=== PATIENT | female | born 1970 | race Two or more races ===

== ENCOUNTER 2020-11-19 19:56 | Inpatient (IN) | payer MEDICARE, OTHER ==
[~2020-11-19] VITALS: Ht 165.1 cm; Wt 179.2 kg
--- NOTE | 2020-11-19 20:00 | NUR ---
PT [id number] UPON TRIAGE PT STATES "I JUST WANT A BED TO BE OUT OF THE STREET" PT DENIES SI/HI. PT AAOX4, APPEARS DISSHEVELED. VITAL SIGNS STABLE. RESPIRATIONS EVEN AND UNLABORED. NO ACUTE DISTRESS NOTED AT THIS TIME. PENDING MD GILL
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
--- NOTE | 2020-11-19 20:10 | NUR ---
DR. WALKER AT BEDSIDE FOR EVAL. NOTED REDDNESS R LOWER EXT
--- NOTE | 2020-11-19 20:20 | NUR ---
MULTIPLE UNSUCCESSFUL IV ATTEMPTS. PT REFUSING BLOOD DRAW AT THIS TIME. DR. WALKER AT BEDSIDE TO ATTEMPT CENTRAL LINE, PT REFUSED. CALLED NURSING SUP FOR MIDLINE, PER NURSING SUP NOT AVAILABLE UNTIL AM. DR. WALKER MADE AWARE. PT RESTING COMFORTABLY IN BED.
--- NOTE | 2020-11-19 20:31 | NUR ---
PT REFSUING IV. SENA MOYA AWARE.
--- NOTE | 2020-11-19 20:38 | NUR ---
The patient refused to give clean catch urine or in and out cath despite explaining risks and benefits. Dr Mc aware.
--- NOTE | 2020-11-19 20:43 | NUR ---
ICU NURSE AT BEDSIDE TO ATTEMPT IV ACCESS, UNSUCCESSFUL.
[2020-11-19] MEDS ORDERED: SULFAMETH/TRIMETH 800/160 MG 1 UDTAB TABLET PO ONE (21:30)
[2020-11-19] MEDS ORDERED: CEFTRIAXONE 1 G VIAL IM ONE (21:30)
--- NOTE | 2020-11-19 21:43 | NUR ---
ATTORNEY LAW CLERK AT BEDSIDE FOR BLOOD DRAW.
[2020-11-19] MEDS ORDERED: SULFAMETH/TRIMETH 800/160 MG 1 UDTAB TABLET ONE (21:45)
[2020-11-19] MEDS ORDERED: CEFTRIAXONE 1 G VIAL ONE (21:45)
[2020-11-19] MEDS ORDERED: LIDOCAINE 1% INJ 50 ML MDV IJ ONE (21:47)
[2020-11-19 21:57] LABS: BASOPHILS % (AUTO) 0.3 % (0.0-2.0); EOSINOPHILS % (AUTO) 2.5 % (0.0-6.0); HEMATOCRIT 38 % (33-45); HEMOGLOBIN 12.4 g/dL (11.5-14.8); LYMPHOCYTES # (AUTO) 1.9 /CMM (0.8-4.8); LYMPHOCYTES % (AUTO) 19.5 % (20.0-44.0); MEAN CORPUSCULAR HGB CONC 33 g/dl (31.0-36.0); MEAN CORPUSCULAR VOLUME 88 fL (82-100); MONOCYTES # (AUTO) 0.5 /CMM (0.1-1.30); MONOCYTES % (AUTO) 5.1 % (2.0-12.0); NEUTROPHILS # (AUTO) 7.2 /CMM (1.8-8.9); NEUTROPHILS % (AUTO) 72.6 % (43.0-81.0); PLATELET COUNT (AUTO) 349 /CMM (150-450); WHITE BLOOD COUNT (AUTO) 9.9 K/uL (4.3-11.0)
[2020-11-19 22:05] LABS: CALCIUM, SERUM 8.4 mg/dL (8.5-10.1); CARBON DIOXIDE 30 mmol/L (21-32); CHLORIDE 100 mmol/L (98-107); CREATININE 0.7 mg/dL (0.6-1.3); GLUCOSE 227 mg/dL (74-106); POTASSIUM 4.5 mmol/L (3.5-5.1); SODIUM SERUM 136 mmol/L (136-145); UREA NITROGEN, BLOOD 10 mg/dL (7-18)
[2020-11-19 22:11] LABS: ALANINE AMINOTRANSFERASE 31 U/L (12-78); ALBUMIN 3.1 g/dL (3.4-5.0); ALKALINE PHOSPHATASE 88 U/L (46-116); ASPARTATE AMINOTRANSFERASE 12 U/L (15-37); BILIRUBIN,DIRECT 0.1 mg/dL (0.0-0.2); BILIRUBIN,TOTAL 0.3 mg/dL (0.2-1.0); TOTAL PROTEIN, SERUM 7.3 g/dL (6.4-8.2)
--- NOTE | 2020-11-19 22:21 | NUR ---
DR. WALKER SPEAKING WITH DR. FARR REGARDING ADMISSION
[2020-11-19] MEDS ORDERED: MAG HYDROX/AL HYDROX/SIMETH 30 ML UDC PO PRN (22:30)
[2020-11-19] MEDS ORDERED: MAGNESIUM HYDROXIDE 30 ML UDC PO PRN (22:30)
[2020-11-19] MEDS ORDERED: ONDANSETRON HCL/PF 4 MG/2 ML VIAL IVP PRN (22:30)
[2020-11-19] MEDS ORDERED: Z GUARD REMEDY 2 OZ OINT TP PRN (22:30)
[2020-11-19] MEDS ORDERED: DEXTROSE 50%-WATER 50 ML DISP.SYRIN IV PRN (22:30)
[2020-11-19] MEDS ORDERED: ZOLPIDEM TARTRATE 5 MG TABLET PO PRN (22:30)
[2020-11-19] MEDS ORDERED: CLINDAMYCIN IV RTU IN D5W 900 MG/50 ML PIGGYBACK IV SCH (22:30)
--- NOTE | 2020-11-19 23:08 | NUR ---
CALLED NURSING SUP FOR MIDLINE INSERTION. PER NURSING SUP, NOT AVAILABLE UNTIL AM
--- NOTE | 2020-11-19 23:24 | NUR ---
REPORT GIVEN TO NURSE GUDINO
--- NOTE | 2020-11-19 23:30 | NUR ---
BED ASSIGNMENT CHANGED TO 326-1
[2020-11-20 00:15] VITALS: BP 138/89
--- NOTE | 2020-11-20 00:22 | NUR ---
PT TRANSFERRED TO [facility]
[2020-11-20 00:30] VITALS: BP 138/89
--- NOTE | 2020-11-20 00:30 | NUR ---
MS/RN ADMITTING NOTE PATIENT ARRIVED TO UNIT VIA GURNEY AND 2 STAFF MEMBERS. PATIENT IS ALERT AND ORIENTED X 4. ABLE TO MAKE NEEDS KNOWN. NO COMPLAINTS OF PAIN AT THIS TIME. CONTINUES ON ROOM AIR WITH NO S/SX OF RESPIRATORY DISTRESS NOTED. PATIENT BEING ADMITTED FOR CELLULITIS OF RLE. BLE EDEMA WITH REDNESS NOTED. PATIENT REFUSED FULL SKIN CHECK UPON ADMISSION. PATIENT REFUSED TO HAVE SHEETS CHANGED FROM ER OR ADL CARE PERFORMED. VS ON ADMISSION: BP 138/89 HR 92 RR 18 T 98.2 O2 SAT 93% ON ROOM AIR. NO IV ACCESS AT THIS TIME D/T MULTIPLE ATTEMPTS. MD AWARE WITH ORDER FOR MIDLINE IN AM. CONTINUES ON CARDIAC DIET WITH NO S/SX OF RESPIRATORY DISTRESS NOTED. ALL BELONGINGS REVIEWED AND CHECKLIST PLACED IN CHART. PATIENT ORIENTED TO CALL LIGHT, UNIT AND ROOM. CALL LIGHT WITHIN REACH. ASPIRATION, FALL AND SAFETY PRECAUTIONS MAINTAINED. WILL CONTINUE TO MONITOR.
[2020-11-20 03:57] LABS: BASOPHILS % (AUTO) 0.4 % (0.0-2.0); EOSINOPHILS % (AUTO) 2.8 % (0.0-6.0); HEMATOCRIT 35 % (33-45); HEMOGLOBIN 11.5 g/dL (11.5-14.8); LYMPHOCYTES # (AUTO) 1.7 /CMM (0.8-4.8); LYMPHOCYTES % (AUTO) 21.4 % (20.0-44.0); MEAN CORPUSCULAR HGB CONC 33 g/dl (31.0-36.0); MEAN CORPUSCULAR VOLUME 87 fL (82-100); MONOCYTES # (AUTO) 0.4 /CMM (0.1-1.30); MONOCYTES % (AUTO) 5.1 % (2.0-12.0); NEUTROPHILS # (AUTO) 5.6 /CMM (1.8-8.9); NEUTROPHILS % (AUTO) 70.3 % (43.0-81.0); PLATELET COUNT (AUTO) 329 /CMM (150-450); RED BLOOD CELL COUNT(AUTO) 3.98 MIL/uL (4.0-5.2); WHITE BLOOD COUNT (AUTO) 7.9 K/uL (4.3-11.0)
[2020-11-20] MEDS: ACETAMINOPHEN 325 MG TABLET PO PRN ×2 (04:05→13:30)
[2020-11-20 04:14] LABS: CREATININE 0.6 mg/dL (0.6-1.3); MAGNESIUM 2.2 mg/dL (1.8-2.4); PHOSPHORUS 3.8 mg/dL (2.5-4.9); POTASSIUM 4.9 mmol/L (3.5-5.1)
[2020-11-20] MEDS: BLOOD SUGAR DIAGNOSTIC 1 EACH STRIP VI SCH ×4 (06:20→22:00)
[2020-11-20] MEDS: INSULIN REGULAR, HUMAN 100 UNIT/ML 3 ML VIAL SQ PRN (06:47)
--- NOTE | 2020-11-20 06:52 | NUR ---
MS/RN CLOSING NOTE PATIENT CURRENTLY SLEEPING IN BED. ALERT AND ORIENTED X 4. ABLE TO MAKE NEEDS KNOWN. NO COMPLAINTS OF PAIN AT THIS TIME. NO IV ACCESS AT THIS TIME - ORDER IN PLACE FOR MIDLINE TODAY WITH MD AWARE. BLOOD GLUCOSE THIS AM IS 244. ADMINISTERED PER ISS. PATIENT REFUSING TO CHANGE BED OR SHEETS, YELLING AT STAFF TO "GO AWAY". WILL ATTEMPT ADL CARE AGAIN BEFORE LEAVING. ALL NEEDS ATTENDED TO. CALL LIGHT WITHIN REACH. ASPIRATION, FALL AND SAFETY PRECAUTIONS MAINTAINED. WILL ENDORSE PLAN OF CARE TO ONCOMING SHIFT.
[2020-11-20 08:00] VITALS: BP 118/72
[2020-11-20] MEDS: IV NS 0.9% 1,000 ML IV SCH (08:30)
[2020-11-20] MEDS: METFORMIN 500 MG TABLET PO SCH ×2 (09:00→17:00)
[2020-11-20] MEDS ORDERED: MORPHINE SULFATE INJ 2 MG/ML DISP.SYRIN IV PRN (12:30)
--- NOTE | 2020-11-20 12:50 | NUR ---
"State Manager consult: financial services consultant consult requested for homelessness. Patient is a 50-year-old, female. SW met with the patient at her bedside in the med-surg unit. Patient was alert and oriented x4. Patient presented guarded and irritated. Per chart, patient was brought in to the hospital from the streets on 11/19/20 for cellulitis. Patient stated that she is currently homeless. Patient stated that she currently receives SSI as a source of income. Patient denied history of substance use. Patient denied history of mental illness. Patient denied suicidal and homicidal ideation. Patient was yelling at SW toward the end of the consult and SW was unable to provide patient with homeless resources and have patient sign homeless waiver. ANDREW was unable to discuss a discharge plan with the patient. ANDREW notified WILMAR Blanco that homeless resources and waiver will be filed in the patient's chart. WILMAR Blanco to follow up at a later time. PLAN: SS will remain available as needed. RESOURCES: Year-round shelters: [place] [address] [address] ; [facility] [address] [place] [address]; [place] [facility] [id number] [facility] [address] SPA 4 | [facility] [place] Provider: First to Serve Address: [address], [address] # of Beds: 48 Population Served: [facility] Provider: [facility] Serve Address: [address] [facility], [address] # of Beds: 73 Population Served: [facility] 6 | [facility] Provider: [facility] Address: [address] [facility], [address] # of Beds: 63 Population Served: [facility] 3 | [facility] Provider: [place] [place] Address: [address] [facility] [address] # of Beds: 75 Population Served: [facility] SPA 8 | [facility] Provider: [place] [place] Address: [address] [facility] [address] # of Beds: 80 Population Served: [place] SPA 1 | [facility] Provider: Hernan LACEY Address: [address] [place] [address], [address] # of Beds: 85 Population Served: [place] SPA 2 | [facility] Provider: Dinorah johnson [facility] Address: Confidential (please call for location) # of Beds: 52 Population Served: [place] SPA 4 | [facility] Provider: [facility] Address: [address] [facility], [address] # of Beds: 49 Population Served: [facility] Provider: First To Serve Address: [address] [place] [address] # of Beds: 27 Population Served: [facility] Hygiene: [facility]: [address] [facility] ; [facility] [address] [facility] ; [facility] [address] [facility] . Food Resources: [place] [facility] at [facility]- [address] [facility]; Meet Each Need with [facility] ([facility]) [address] [facility]; [facility] [address] [facility]; [facility] [address] [facility]. Mental Health resources provided: [facility] [address] [place] [address] ; [facility] [address] [facility] [address], [place] [address] ; [facility] [place] [facility] [address] [place] [address] ; [facility] [place], [place] [address] Healthcare Clinics: [facility] [address] [facility], [address] [place]. [place] ; [facility] [address] [facility] [address] [place] [address]; [facility] [address] [facility]. [place] [phone] Counseling--Outpatient [facility] [address] [facility], [place] [address] (Specializes in in-depth psychotherapy for emotional distress: anxiety, depression, interpersonal conflicts, life transitions, childhood abuse) PSYCHIATRIC OUTPATIENT SERVICES [facility] Partial Hospitalization and Intensive Outpatient Program (Managed Care and [place] Only) [address] [address]. [facility] [id number] [facility] Partial Hospitalization and Outpatient Program [address] [facility]. [address] [place], [place] [id number] [facility] Partial Hospitalization and Outpatient Program [address] [place] [facility] [place], [place] [id number] [facility] [place] [facility] [address] [facility]. [address] [place], [place] [id number] [facility] Partial Hospitalization and Outpatient Program [address] [place], [place] [phone] "
[2020-11-20] MEDS ORDERED: CLINDAMYCIN 900 MG in IV D5W 50 ML IV SCH (13:00)
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
[2020-11-20] MEDS ORDERED: ONDANSETRON 4 MG TAB.RAPDIS SL PRN (15:00)
[2020-11-20 16:00] VITALS: BP 126/73
[2020-11-20] MEDS: LACTOBACILLUS RHAMNOSUS GG 1 EACH CAP.SPRINK PO SCH (17:00)
--- NOTE | 2020-11-20 17:58 | NUR ---
Pt agreed to blood glucose check; blood glucose 235. Pt screamed at RN and refused insulin and all oral medications to treat blood glucose level. Pt demanding a cookie; explained to pt that pt's blood glucose is high and there are no cookies, therefore pt will not be getting a cookie. Nurse Practitioner Nati Corbett notified via phone. No new orders. Continuing to monitor pt safety.
[2020-11-20] MEDS: CLINDAMYCIN HCL 150 MG CAPSULE PO SCH (18:00)
[2020-11-20] MEDS: HYDROCODONE/APAP 5/325MG TABLET PO PRN (18:50)
[2020-11-20 20:00] VITALS: BP 144/72
[2020-11-20] MEDS: risperiDONE 1 MG TABLET PO SCH (21:30)
[2020-11-20] MEDS ORDERED: HALOPERIDOL LACTATE INJ 5 MG/ML VIAL IM PRN (21:30)
--- NOTE | 2020-11-20 22:39 | NUR ---
PT REFUSED MEDICATIONS; REFUSED ACCUCHECK. PATIENT IN ROOM. IN BED IN NO APPARENT DISTRESS. PATIENT ASKED TO TAKE RISPIRIDONE AND TO TAKE ACCUCHECK. PATIENT REFUSED STATING, "NO YOUR NOT A MEDICAL DOCTOR. I DON'T WANT TO TAKE ANYTHING. JUST LEAVE ME ALONE." PT INFORMED PRESCRIBED THE MEDICATION AND THAT I WAS NURSE. PT INFORMED OF HOW MEDICATIONS WOULD BENEFIT HER MOOD AND THE IMPORTANCE OF MONITORING BLOOD SUGAR. PT STATES, "I DONT WANT IT. NOW PLEASE CLOSE MY CURTAIN." WILL CONT TO MONITOR.
--- NOTE | 2020-11-21 00:25 | NUR ---
PT REFUSED CLYNDAMYCIN. INFORMED LEG WONT GET BETTER IF SHE KEEPS REFUSING ANTIBIOTIC. STATES "LEAVE ME ALONE."
[2020-11-21] MEDS: HYDROCODONE/APAP 5/325MG TABLET PO PRN ×3 (04:25→17:52)
--- NOTE | 2020-11-21 05:35 | NUR ---
dr. villalpando called back informed of high blood pressure. new order for hydralizine 25 mg po x1 given.
[2020-11-21] MEDS: CLINDAMYCIN HCL 150 MG CAPSULE PO SCH ×5 (05:51→18:03)
--- NOTE | 2020-11-21 05:51 | NUR ---
patient refused clyndamycin this am. states, "i don't want that."
[2020-11-21] MEDS: BLOOD SUGAR DIAGNOSTIC 1 EACH STRIP VI SCH ×4 (06:33→22:00)
[2020-11-21 06:34] LABS: BASOPHILS % (AUTO) 0.5 % (0.0-2.0); EOSINOPHILS % (AUTO) 4.8 % (0.0-6.0); HEMATOCRIT 33 % (33-45); HEMOGLOBIN 10.9 g/dL (11.5-14.8); LYMPHOCYTES % (AUTO) 17.4 % (20.0-44.0); MEAN CORPUSCULAR HGB CONC 33 g/dl (31.0-36.0); MEAN CORPUSCULAR VOLUME 87 fL (82-100); MONOCYTES # (AUTO) 0.2 /CMM (0.1-1.30); MONOCYTES % (AUTO) 2.9 % (2.0-12.0); NEUTROPHILS # (AUTO) 4.1 /CMM (1.8-8.9); NEUTROPHILS % (AUTO) 74.4 % (43.0-81.0); PLATELET COUNT (AUTO) 249 /CMM (150-450); RED BLOOD CELL COUNT(AUTO) 3.77 MIL/uL (4.0-5.2); WHITE BLOOD COUNT (AUTO) 5.5 K/uL (4.3-11.0)
[2020-11-21] MEDS: INSULIN REGULAR, HUMAN 100 UNIT/ML 3 ML VIAL SQ PRN ×2 (06:34→18:00)
[2020-11-21 07:06] LABS: CALCIUM, SERUM 8.1 mg/dL (8.5-10.1); CREATININE 0.7 mg/dL (0.6-1.3); MAGNESIUM 2.1 mg/dL (1.8-2.4); POTASSIUM 4.2 mmol/L (3.5-5.1)
--- NOTE | 2020-11-21 07:57 | NUR ---
WOUND CARE CONSULT: PT REFUSED FULL SKIN ASSESSMENT. PT LYING ON HER RT SIDE AT THIS TIME. REDNESS NOTED TO RT LOWER LEG, PRESENT ON ADMISSION. PER PT AND NURSING REPORT THERE IS REDNESS/RASH TO BREASTFOLDS AND ABDOMINAL/GROIN FOLDS, PRESENT ON ADMISSION. PT REFUSED PHOTOS. RECOMMENDATIONS MADE FOR SKIN PROTECTION. DISCUSSED WITH NURSING STAFF. PT IS INDEPENDENT WITH BED MOBILITY. MD IN AGREEMENT WITH PLAN OF CARE.
[2020-11-21 08:00] VITALS: BP 119/72
[2020-11-21] MEDS: METFORMIN 500 MG TABLET PO SCH ×2 (09:32→18:03)
[2020-11-21] MEDS: risperiDONE 1 MG TABLET PO SCH ×2 (09:32→21:40)
[2020-11-21] MEDS: LACTOBACILLUS RHAMNOSUS GG 1 EACH CAP.SPRINK PO SCH ×2 (09:32→18:03)
[2020-11-21] MEDS: CLOTRIMAZOLE 1% 15 GM TUBE TP SCH ×2 (09:34→17:00)
[2020-11-21] MEDS: *INSULIN REGULAR(HUMULIN R)HUM 100 UNIT/ML VIAL SQ PRN ×2 (11:54→23:00)
[2020-11-21] MEDS: ACETAMINOPHEN 325 MG TABLET PO PRN ×2 (11:57→20:10)
[2020-11-21 16:00] VITALS: BP 132/85
--- NOTE | 2020-11-21 19:01 | NUR ---
End of shift: VSS, pt now getting more agitated despite scheduled risperdol and prn haldol. Pt yelling and talking about her eyes being full of smoke. Pt refused insulin at dinner time but took metformin and abx as ordered. Giving report to DALIA URBAN.
--- NOTE | 2020-11-21 19:50 | NUR ---
MS RN OPENING NOTES: RECEIVED PATIENT AWAKE IN BED, BED IN LOW POSITION, CALL LIGHTS WITHIN REACH, NO COMPLAIN OF PAIN AND DISCOMFORT AT THIS TIME, WITH TEMP AT 101.[address] KHALIL AND GIVEN TYLENOL 650MG PRN FOR FEVER, A/OX4 ABLE TO MAKE NEEDS KNOWN, AMBULATORY WITH SUPERVISION,PATIENT IS FALL RISK, ALL NEEDS MET KEPT CLEAN AND DRY, WILL CONTINUE TO MONITOR.
[2020-11-21 20:00] VITALS: BP 145/65
--- NOTE | 2020-11-21 20:00 | NUR ---
RN NOTES: PATIENT WAS NOTED WITH FEVER OF 101.[address] SANTOS AND ORDER BLOOD CULTURE X2, URINE CULTURE, AND CXR NOTED AND CARRIED OUT
[2020-11-22] MEDS: CLINDAMYCIN HCL 150 MG CAPSULE PO SCH ×3 (00:06→12:09)
--- NOTE | 2020-11-22 05:37 | NUR ---
RN NOTES: PATIENT REFUSED BLOOD DRAWN TWICE AT AROUND 0100 AND 0530 AM EXPLAIN RISK AND BENEFITS PATIENT REFUSED AND AGITATES.
--- NOTE | 2020-11-22 07:30 | NUR ---
MS RN CLOSING NOTES: PATIENT AWAKE IN BED, A/O 3-4 , BED IN LOW POSITION , CALL LIGHTS WITHIN REACH,NO COMPLAIN OF PAIN AND DISCOMFORT, NO SOB NOTED, ALL NEEDS MET,ENDORSE TO INCOMING SHIFT.
[2020-11-22] MEDS: BLOOD SUGAR DIAGNOSTIC 1 EACH STRIP VI SCH ×2 (07:47→12:09)
[2020-11-22] MEDS: INSULIN REGULAR, HUMAN 100 UNIT/ML 3 ML VIAL SQ PRN ×2 (07:49→12:08)
--- NOTE | 2020-11-22 08:02 | NUR ---
MS RN OPENING NOTE PATIENT IS IN BED RESTING, PATIENT IS IN NO ACUTE DISTRESS. PATIENT IS ON ROOM AIR TOLERATING WELL. PATIENT REFUSES IV ACCESS REPORTED FROM THE HOT WIRE GLASS TUBE CUTTER NURSE. PATIENT IS RUDE AND DEMANDING. PATIENT REFUSED LABS. SAFETY PRECAUTIONS ARE ON, BED IS LOCKED IN THE LOWEST POSITION, WITH SIDE RAILS UP, CALL LIGHT WITHIN REACH, WILL CONTINUE TO MONITOR CLOSELY THOROUGH OUT THE SHIFT.
[2020-11-22] MEDS: LACTOBACILLUS RHAMNOSUS GG 1 EACH CAP.SPRINK PO SCH (08:52)
[2020-11-22] MEDS: risperiDONE 1 MG TABLET PO SCH (08:52)
[2020-11-22] MEDS: METFORMIN 500 MG TABLET PO SCH (08:53)
[2020-11-22] MEDS: CLOTRIMAZOLE 1% 15 GM TUBE TP SCH (08:53)
--- NOTE | 2020-11-22 12:12 | NUR ---
PLEASE DISREGARD XRAY TOOK ON 11/22/2020 AT 0701 HOURS. WRONG XRAY SEND TO THIS PT YW
--- NOTE | 2020-11-22 15:27 | NUR ---
MS WEB METHODS DEVELOPER NOTE PATIENT IS IN NO ACUTE DISTRESS, PATIENT IS MEDICALLY STABLE TO BE DISCHARGED, PATIENT REFUSED BLOOD WORK AND OTHER TEST DURING THE STAY. PATIENT REFUSED SKIN ASSESSMENT AND PICTURES. DISCHARGE INSTRUCTIONS PROVIDED. BELONGINGS LIST WENT OVER AND SIGNED. REPORT IS GIVEN TO [facility] FOR FURTHER FOLLOW OF THE CARE. PATIENTS ID BAND REMOVED, PATIENT DID NOT HAVE AN IV SITE DURING THE STAY. PATIENT WAS PICKED UP BY [facility] [employer] [facility] AND AMBULATE FOR TRANSFER. MD IS MISHRA OF DISCHARGE.
== END 2020-11-22 15:24 | DRG 603 ==
LOC: ER 19:58 → MED 23:22
PROVIDERS: ADMIT Family Medicine; ATTEND Nurse Practitioner Acute Care
PROC: 05HF33Z Insertion of Infusion Device into Left Cephalic Vein, Percutaneous Approach (ICD-10-PCS; principal; 2020-11-20)
DX: L03.115 Cellulitis of right lower limb (principal); Z68.44 Body mass index [BMI] 60.0-69.9, adult; E44.0 Moderate protein-calorie malnutrition; E87.2 Acidosis; Z59.0 Homelessness; E66.01 Morbid (severe) obesity due to excess calories; L03.116 Cellulitis of left lower limb; E11.65 Type 2 diabetes mellitus with hyperglycemia; F29 Unspecified psychosis not due to a substance or known physiological condition; Z20.822 Contact with and (suspected) exposure to COVID-19; Z79.899 Other long term (current) drug therapy; Z99.3 Dependence on wheelchair; G47.33 Obstructive sleep apnea (adult) (pediatric)
CPT/HCPCS: 36415; 71045-TC; 73590-TC; 80048-TC; 80061-TC; 80076-TC; 82962-TC; 83605-TC; 83735-TC; 84100-TC; 85025-TC; 85730-TC; 87040-TC; 87081-TC; 93307-TC; 93971-TC; C9803; G0378; J0696; J1630; J1815; J3490; J7060

== ENCOUNTER 2022-10-14 14:03 | Emergency (ER) | payer MEDICARE, OTHER ==
[~2022-10-14] VITALS: Ht 165.1 cm; Wt 145.1 kg
--- NOTE | 2022-10-14 14:13 | NUR ---
[id number] FOR BILATERAL LEG PAIN FOR 5 YEARS.
--- NOTE | 2022-10-14 16:23 | NUR ---
UNABLE TO DO U/S OF BILATERAL LOWER EXTREMITY PATIENT NEED TO BE CHANGED DUE TO INCONTINENCE. INFORMED NURSE AND MD FITZPATRICK.
[2022-10-14] MEDS ORDERED: KETOROLAC TROMETHAMINE INJ 60 MG/2 ML VIAL IM ONE (17:30)
[2022-10-14] MEDS ORDERED: ACETAMINOPHEN ES 500 MG TABLET PO ONE (17:30)
--- NOTE | 2022-10-14 18:02 | NUR ---
UNABLE TO DO U/S OF BILATERAL LOWER EXTREMITY PATIENT UNABLE TO STAY FLAT ON BED, AND SWELLING OF LEGS. INFORMED DR. FITZPATRICK.
[2022-10-14] MEDS ORDERED: KETOROLAC TROMETHAMINE INJ 30 MG/ML VIAL ONE (18:16)
[2022-10-14] MEDS ORDERED: ACETAMINOPHEN ES 500 MG TABLET ONE (18:17)
[2022-10-14 19:04] VITALS: BP 148/94
--- NOTE | 2022-10-14 19:04 | NUR ---
Patient discharged to home in stable condition. Written and verbal after care instructions given. Patient verbalizes understanding of instruction.
== END 2022-10-14 19:04 | disposition home or self-care (01) ==
LOC: ER 14:20
DX: M79.605 Pain in left leg (principal); M79.604 Pain in right leg; Z59.00 Homelessness unspecified
CPT/HCPCS: 99283; 96372; J1885